=== PATIENT | male | born 1975 | race Caucasian/White ===

== ENCOUNTER 2020-07-31 20:52 | Emergency (ER) | payer MEDICAID ==
[2020-07-31 21:01] VITALS: BP 139/64
[2020-07-31 21:03] VITALS: PULSE 72
[2020-07-31] MEDS ORDERED: Acetaminophen/HYDROcodone 325-5 MG Tab PO ONE (21:29)
--- NOTE | 2020-07-31 21:29 | EDM.PDOC ---
ED HPI GENERAL MEDICAL PROBLEM - General Chief Complaint: General Stated Complaint: ARM INJURY Time Seen by Provider: 07/31/20 21:10 Source of Information: Reports: Patient, RN History Limitations: Reports: No Limitations - History of Present Illness INITIAL COMMENTS - FREE TEXT/NARRATIVE: patient fell at 1700 injuring left clavicle area. Took ibuprofen with minimal relief. Full ROM with pain. CMS +. Denies head injury or any other injuries. Denies CP, SOB, cough, fever, back pain. 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 Left Clavicle Pain Score (Numeric/FACES): 8 - Related Data Allergies Allergy/AdvReac Type Severity Reaction Status Date / Time No Known Allergies Allergy Verified 07/31/20 20:53 Home Meds: Home Meds LORazepam [Lorazepam] 0.5 mg PO DAILY 07/31/20 [History] Past Medical History - Past Health History Medical/Surgical History: Denies Medical/Surgical History Musculoskeletal History: Reports: Other (See Below) Other Musculoskeletal History: HX BROKEN ANKLE AND BROKEN LEG Psychiatric History: Reports: Anxiety ED ROS GENERAL - Review of Systems Review Of Systems: See Below Constitutional: Reports: No Symptoms HEENT: Reports: No Symptoms Respiratory: Reports: No Symptoms Cardiovascular: Reports: No Symptoms Endocrine: Reports: No Symptoms GI/Abdominal: Reports: No Symptoms : Reports: No Symptoms Musculoskeletal: Reports: Other (left clavicle pain) Skin: Reports: No Symptoms Neurological: Reports: No Symptoms Psychiatric: Reports: No Symptoms Hematologic/Lymphatic: Reports: No Symptoms Immunologic: Reports: No Symptoms ED EXAM, GENERAL - Physical Exam Exam: See Below Exam Limited By: No Limitations General Appearance: Alert, No Apparent Distress Eye Exam: Bilateral Eye: PERRL Ears: Normal External Exam Throat/Mouth: Normal Voice Head: Atraumatic Neck: Normal Inspection, Non-Tender, Full Range of Motion Respiratory/Chest: No Respiratory Distress, Lungs Clear, Normal Breath Sounds Cardiovascular: Normal Peripheral Pulses, Regular Rate, Rhythm, No Edema, No JVD, No Murmur Peripheral Pulses: 3+: Radial (L), Radial (R) (Male) Exam: Deferred Rectal (Males) Exam: Deferred Back Exam: Normal Inspection, Full Range of Motion. No: CVA Tenderness (R), CVA Tenderness (L) Extremities: Normal Inspection, Normal Capillary Refill, Other (left arm pain with ROM) Neurological: Alert, Oriented, Normal Cognition, Normal Gait, No Motor/Sensory Deficits Psychiatric: Normal Affect, Normal Mood Skin Exam: Warm, Dry, Intact Course - Vital Signs Last Recorded V/S: Last Vital Signs Temp 98 F 07/31/20 21:02 Pulse 72 07/31/20 21:02 Resp 18 07/31/20 21:02 BP 139/64 07/31/20 21:02 Pulse Ox 100 07/31/20 21:02 - Orders/Labs/Meds Orders: Active Orders 24 hr Category Date Time Status Clavicle Lt [CR] Stat Exams 07/31/20 21:09 Ordered Departure - Departure Time of Disposition: 21:37 Disposition: Home, Self-Care 01 Condition: Good Clinical Impression: Muscle strain - Discharge Information *PRESCRIPTION DRUG MONITORING PROGRAM REVIEWED*: Not Applicable *COPY OF PRESCRIPTION DRUG MONITORING REPORT IN PATIENT PAUL: Not Applicable Additional Instructions: Ice every 3-4 hours for 15-20 minutes for the first 24 hours. Gentle movement. Take 600mg ibuprofen every 6 hours for the pain. you were given [place] in the ED for pain, no driving, alcohol, or ativan tonight. Return to ED for any increased or new concerning symptoms. Follow up with your primary doctor if pain persists. Sepsis Event Note (ED) - Evaluation Sepsis Screening Result: No Definite Risk - Focused Exam Vital Signs: Vital Signs Temp Pulse Resp BP Pulse Ox 07/31/20 21:02 98 F 72 18 139/64 100 07/31/20 21:01 98 F 71 18 139/64 100 - My Orders Last 24 Hours: My Active Orders 07/31/20 21:09 Clavicle Lt [CR] Stat - Assessment/Plan Last 24 Hours: My Active Orders 07/31/20 21:09 Clavicle Lt [CR] Stat
--- NOTE | 2020-08-03 11:44 | CR ---
Date of Service: 07/31/20 Clinical Data: fall LEFT CLAVICLE: No acute fracture or dislocation. No lytic or blastic bone lesions. [id number] [facility]
== END 2020-07-31 21:39 | disposition home or self-care (01) ==
LOC: LB.ED 20:52
DX: S46.912A Strain of unspecified muscle, fascia and tendon at shoulder and upper arm level, left arm, initial encounter (principal); F41.9 Anxiety disorder, unspecified; Z79.899 Other long term (current) drug therapy; W19.XXXA Unspecified fall, initial encounter
CPT/HCPCS: 73000-LT; 99283-25; A9270-GY